=== PATIENT | female | born 1970 | race Two or more races ===

== ENCOUNTER 2018-10-18 21:56 | Emergency (ER) | payer MEDICAID ==
[~2018-10-18] VITALS: Ht 162.6 cm; Wt 72.6 kg
[~2018-10-18 21:56] MED LIST: IBUPROFEN600 MG ORAL; NKM; NORCO 5-325 TA1 EACH ORAL; TAMSULOSIN HCL0.4 MG ORAL
[2018-10-18 22:08] VITALS: BP 126/69
[2018-10-18] MEDS ORDERED: IBUPROFEN600 MG ORAL (22:14)
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
[2018-10-18 22:40] VITALS: BP 126/69
== END 2018-10-18 22:40 | disposition home or self-care (01) ==
LOC: EMR 22:17
DX: S16.1XXA Strain of muscle, fascia and tendon at neck level, initial encounter (principal); V43.52XA Car driver injured in collision with other type car in traffic accident, initial encounter; Y92.410 Unspecified street and highway as the place of occurrence of the external cause; Z88.0 Allergy status to penicillin; R51 Headache
CPT/HCPCS: 72040; 99283

== ENCOUNTER 2020-10-26 13:04 | Emergency (ER) | payer MEDICAID ==
[~2020-10-26] VITALS: Ht 165.1 cm; Wt 65.8 kg
[2020-10-26 13:29] VITALS: BP 137/62
--- NOTE | 2020-10-26 13:58 | Emergency Room Report ---
History of Present Illness General Chief Complaint: Upper Respiratory Illness Source: Patient Present Illness HPI 49-year-old female presents to the emergency department complaining of having a fever last night. Patient reports her temperature was 99.5 and she took Motrin last night and this morning. Patient denies cough, shortness of breath, neck pain/stiffness. She does report slight frontal headache that she rates as a 5 out of 10 in severity without photophobia. Patient denies nausea or vomiting. She denies dizziness or visual changes. Patient denies constipation or diarrhea. She reports no significant past medical history. Denies recent travel. Denies contact with persons who have tested positive for or are under investigation/quarantine for COVID-19. Allergies: Uncoded Allergies: PENICILLIN (Allergy, Unknown, 10/18/18) COVID-19 Screening Contact w/high risk pt: No Experienced COVID-19 symptoms?: No COVID-19 Testing performed [employer]CRETE [employer]: No Patient History Past Medical History: see triage record Past Surgical History: none Pertinent Family History: none Now: No Reviewed Nursing Documentation: PMH: Agreed; PSxH: Agreed Nursing Documentation-PMH Past Medical History: No Stated History Review of Systems All Other Systems: negative except mentioned in HPI Physical Exam Vital Signs Date Time Temp Pulse Resp B/P (MAP) Pulse Ox O2 Delivery O2 Flow Rate FiO2 10/26/20 13:29 98.4 71 16 137/62 (87) 99 Room Air Sp02 EP Interpretation: reviewed, normal General Appearance: no apparent distress, alert, GCS 15, non-toxic Head: normocephalic, atraumatic Eyes: bilateral eye normal inspection, bilateral eye PERRL, bilateral eye other - No photophobia ENT: hearing grossly normal, normal pharynx, normal voice, TMs + canals normal, uvula midline Neck: full range of motion, no meningismus, no bony tend Respiratory: chest non-tender, lungs clear, normal breath sounds, no respiratory distress, no accessory muscle use, no wheezing, speaking full sent ences Cardiovascular #1: regular rate, rhythm Gastrointestinal: normal bowel sounds, non tender, soft Genitourinary: normal inspection, no CVA tenderness Musculoskeletal: back normal, normal range of motion, gait/station normal, non- tender Neurologic: alert, motor strength/tone normal, oriented x3, sensory intact, responsive, speech normal, normal gait, grossly normal, no focal defects Psychiatric: judgement/insight normal Skin: normal color Lymphatic: no adenopathy Medical Decision Making PA Attestation Dr. Higgins is my supervising Physician whom patient management has been discussed with. Diagnostic Impression: Primary Impression: Encounter for medical screening examination ER Course 49-year-old female presents to the emergency department complaining of having a fever last night. Patient reports her temperature was 99.5 and she took Motrin last night and this morning. Patient denies cough, shortness of breath, neck pain/stiffness. She does report slight frontal headache that she rates as a 5 out of 10 in severity without photophobia. Patient denies nausea or vomiting. She denies dizziness or visual changes. Patient denies constipation or diarrhea. She reports no significant past medical history. Denies recent travel. Denies contact with persons who have tested positive for or are under investigation/quarantine for COVID-19. Ddx considered but are not limited to URI, pneumonia, PE, strep pharyngitis, meningitis, COVID-19 Vital signs: Pt. is afebrile, the remaining VS are WNL H&PE are most consistent with normal limited medical screening examination- no signs of acute URI, no meningeal signs, and no evidence of bacterial infection at this time. Patient is nontoxic in appearance in no acute distress. ORDERS: -Urinalysis: Within normal limits ED INTERVENTIONS: None required at this time. -I do not identify an emergent condition at this time. With current presentation, pt. is stable for close outpatient follow up and conservative treatment. D/w pt. to return promptly to ED with worsening or new symptoms.- Pt. verbalizes' understanding and agreement with proposed treatment plan.proposed treatment plan. DISCHARGE: At this time pt. is stable for d/c to home. Will provide printed patient care instructions, and any necessary prescriptions. Care plan and follow up instructions have been discussed with the patient prior to discharge. Labs Test 10/26/20 14:58 Urine Color Pale yellow Urine Appearance Clear Urine pH 5 (4.5-8.0) Urine Specific [place] 1.020 (1.005-1.035) Urine Protein Negative (NEGATIVE) Urine Glucose (UA) Negative (NEGATIVE) Urine Ketones Negative (NEGATIVE) Urine Blood Negative (NEGATIVE) Urine Nitrite Negative (NEGATIVE) Urine Bilirubin Negative (NEGATIVE) Urine Urobilinogen Normal MG/DL (0.0-1.0) Urine Leukocyte Esterase Negative (NEGATIVE) Last Vital Signs Date Time Temp Pulse Resp B/P (MAP) Pulse Ox O2 Delivery O2 Flow Rate FiO2 10/26/20 13:29 98.4 71 16 137/62 (87) 99 Room Air Disposition: HOME, SELF-CARE Condition: Stable Scripts Acetaminophen* (TYLENOL EXTRA STRENGTH*) 500 Mg Tablet 500 MG ORAL Q6H PRN for Mild Pain/Temp > 100.5, #20 TAB 0 Refills Prov: Caridad Kennedy 10/26/20 Referrals: Sunny Delgado [facility]. [facility] + [facility] Patient Instructions: Fever, Adult Additional Instructions: Take medications as directed. Follow up with a Primary Care Provider in 3-5 days, even if your symptoms have resolved. --Please review list of primary care clinics, if you do not already have a primary care provider Return sooner to ED if new symptoms occur, or current symptoms become worse. - Please note that this Emergency Department Report was dictated using MoPubprofessional nursing assistant technology software, occasionally this can lead to erroneous entry secondary to interpretation by the dictation equipment. Caridad Kennedy Oct 26, 2020 13:58
[2020-10-26] MEDS ORDERED: TYLENOL EXTRA500 MG ORAL (13:59)
[2020-10-26 15:25] LABS: APPEARANCE,URINE CLEAR; BILIRUBIN, URINE NEGATIVE (NEGATIVE); COLOR,URINE PALE YELLOW; GLUCOSE, URINE (UA) NEGATIVE (NEGATIVE); KETONES,URINE NEGATIVE (NEGATIVE); LEUKOCYTE ESTERASE ,URINE NEGATIVE (NEGATIVE); NITRITE,URINE NEGATIVE (NEGATIVE); PH,URINE 5 (4.5-8.0); PROTEIN,URINE NEGATIVE (NEGATIVE); UROBILINOGEN,URINE NORMAL MG/DL (0.0-1.0)
[2020-10-26 16:16] VITALS: BP 118/75
== END 2020-10-26 16:22 | disposition home or self-care (01) ==
LOC: EMR 14:15
DX: Z13.89 Encounter for screening for other disorder (principal); R50.9 Fever, unspecified; R51.9 Headache, unspecified; Z88.0 Allergy status to penicillin
CPT/HCPCS: 81003; Z7502; 99283